=== PATIENT | male | born 1995 | race Caucasian/White ===

== ENCOUNTER 2018-04-07 16:42 | Emergency (ER) | payer OTHER ==
[~2018-04-07] VITALS: Ht 172.7 cm; Wt 103.4 kg
[2018-04-07 16:42] VITALS: BP 158/80
[2018-04-07] MEDS: DEXAMETHASONE 10 MG/ML VIAL IM ONE (17:17)
[2018-04-07] MEDS: ALBUTEROL SULFATE/IPRATROPIU 3 ML SOL IH ONE (17:18)
[2018-04-07] MEDS: CLINDAMYCIN 600 MG/4 ML VIAL IM ONE (17:21)
[2018-04-07 17:35] VITALS: BP 138/71
== END 2018-04-07 17:35 | disposition home or self-care (01) ==
LOC: MED 16:42
DX: J03.90 Acute tonsillitis, unspecified (principal); R09.82 Postnasal drip
CPT/HCPCS: 94640; 96372; 99283; J1100; J3490; J7620

== ENCOUNTER 2018-10-20 19:51 | Emergency (ER) | payer OTHER ==
[~2018-10-20] VITALS: Ht 172.7 cm; Wt 87.5 kg
[2018-10-20 20:15] VITALS: BP 135/65
--- NOTE | 2018-10-20 20:20 | NUR ---
PT AMBULATED TO THE LOBBY.
--- NOTE | 2018-10-20 23:28 | NUR ---
PT VITALS RECHECKED. VSS. PT AMBUALTED BACK TO THE LOBBY.
--- NOTE | 2018-10-20 23:34 | NUR ---
PT AMBULATED TO BED 08
--- NOTE | 2018-10-20 23:50 | NUR ---
23 Y/O MALE PRESENTS TO ED, C/O THROAT PAIN 09/28. PT STATES HE HAD A FLU ONE WEEK AGO, SYMPTOMS CLEARED EXCEPT FOR THROAT PAIN. PT STATES THE PAIN IS SHARP WHEN SWALLOWING. PT ABLE TO TOLERATE ADEQUATE FOOD AND FLUIDS. THROAT APPEARED MOIST AND PINK INSIDE. NO SOB. PT VSS. DR EASON AWARE. WILL CONTINUE TO MONITOR.
--- NOTE | 2018-10-21 01:37 | NUR ---
Dr. Rodriguez examining patient.
[2018-10-21 02:25] VITALS: BP 121/88
--- NOTE | 2018-10-21 02:25 | NUR ---
PT DISCHARGED WITH PAPERWORK. RX FLONASE, EDUCATED PT REGARDING MEDICATION AND SIDE EFFECTS. EDUCATED PT REGARDING DISCHARGE DIAGNOSIS. PT VERBALIZED UNDERSTANDING OF TEACHING. TOLD PT TO FOLLOW UP WITH PCP AND WHEN TO RETURN TO ED. PT VSS. ALL QUESTIONS ANSWERED.
== END 2018-10-21 02:25 | disposition home or self-care (01) ==
LOC: MED 19:51
DX: J02.9 Acute pharyngitis, unspecified (principal); J30.9 Allergic rhinitis, unspecified
CPT/HCPCS: 99283

== ENCOUNTER 2020-08-27 16:20 | Emergency (ER) | payer OTHER ==
[~2020-08-27] VITALS: Ht 172.7 cm; Wt 99.8 kg
[2020-08-27 16:28] VITALS: BP 121/85
[2020-08-27 17:21] VITALS: BP 121/85
== END 2020-08-27 17:21 | disposition home or self-care (01) ==
LOC: MED 16:20
DX: S06.0X9A Concussion with loss of consciousness of unspecified duration, initial encounter (principal); R11.0 Nausea; V00.131A Fall from skateboard, initial encounter; Y93.89 Activity, other specified; Y92.89 Other specified places as the place of occurrence of the external cause; Y99.8 Other external cause status
CPT/HCPCS: 99281